=== PATIENT | female | born 1980 | race Hispanic/Latino ===

== ENCOUNTER 2017-11-21 20:00 | Inpatient (IN) | payer OTHER ==
--- NOTE | 2017-11-21 19:38 | PDOC.LDHP ---
Labor and Delivery H&P Chief complaint: scheduled induction HPI: 37 yo @ 38w2d by 10w5d CRL who presents for scheduled IOL due to pre- gestational DM, controlled on Metformin 500 mg BID and Glyburide 2.5 mg BID. Fetus also noted to have possible VSD, hypermobility of Eustachian valve and possible left ventricular hypertrophy on echo. Pt has been counseled and recommended that have echo after . NICU notified. Remainder of antepartum course has been benign. Current gestational age (weeks): 38 Due date: 12/03/17 Dating criteria: first trimester ultrasound Grav: 2 Para: 1 OB History Details: 1 term without complications, 6lb5oz Current complications: pregestational diabetes Abnormal US findings: Yes (See HPI above. ) Past Medical History: Type 2 DM Current medications: pre-argelia vitamins, other (Metformin, Glyburide) Previous surgical history: none Allergies/Adverse Reactions: Allergies Allergy/AdvReac Type Severity Reaction Status Date / Time No Known Allergies Allergy Verified 11/21/17 21:12 Social history: none - Physical Exam Vital signs reviewed and normal: yes General: NAD Heart: RRR Lungs: nonlabored breathing Abdomen: gravid Extremeties: trace edema FHT: category 2 (120s, mod leland, +accels, + early and occasional variable decles - overall reassuring cat 2, some periods overnight with minimal variability which resolved with PO intake.) [place] contractions every: q2-3 min - Vaginal Exam cm dilated: 7 (AROM thick meconium - exam by me this AM ) Effacement: 0% Station: -2 - OB Labs Blood type: O RH: positive Antibody Screen: negative HIV: negative RPR: negative HEPSAg: negative GBS: positive Urine drug screen: not done Rubella: immune Additional Labs: NIPT and msAFP negative - Assessment 38w2d IUP Pre-gestational DM VSD and possible LVH Concern for possible LGA GHTN GBS carrier - Plan Plan: admit to L&D, cervical ripening, GBS antibiotic prophylaxis, informed consent obtained, anesthesia consult for pain management -: s/p cytotec cervical ripening x 1 dose, now in active labor Notified NICU of possible findings on echo. Will need echo after Accu checks during labor and PRN insulin. HTN not persistently severe. PreE labs wnl. Presumed GHTN and pain related. NICU at delivery due to echo and meconium
[2017-11-21] MEDS ORDERED: Diphenoxylate HCl/Atropine Tablet PO PRN (20:56)
[2017-11-21] MEDS ORDERED: Promethazine HCl 25 MG/ML VIAL IM PRN (20:56)
[2017-11-21] MEDS ORDERED: HYDROcodone/Acetaminophen 5/325 mg Tablet PO PRN (20:56)
[2017-11-21] MEDS ORDERED: LR / Pitocin 40 units/1000 ml 1,000 ML IV PRN (20:56)
[2017-11-21] MEDS ORDERED: Lidocaine 1% (PF) 30 ML VIAL SC PRN (20:56)
[2017-11-21] MEDS ORDERED: Ondansetron HCl/PF 4 MG/2 ML Vial IVP PRN (20:56)
[2017-11-21] MEDS ORDERED: Carboprost 250 MCG/ML AMP IM PRN (20:56)
[2017-11-21] MEDS ORDERED: Penicillin G Potassium 5 MILL.UNITS in Sodium Chloride 0.9% 100 ML IVPB SCH (20:56)
[2017-11-21] MEDS ORDERED: Ibuprofen 800 MG TAB PO PRN (20:56)
[2017-11-21] MEDS ORDERED: Methylergonovine 0.2 MG/ML VIAL IM PRN (20:56)
[2017-11-21] MEDS ORDERED: Misoprostol 200 MCG TAB PR PRN (20:56)
[2017-11-21] MEDS ORDERED: Acetaminophen 500 MG TAB PO PRN (20:56)
[2017-11-21 21:15] VITALS: BMI 31.9
[2017-11-21] MEDS: Lactated Ringer's 1,000 ML IV SCH (21:55)
[2017-11-21 22:08] LABS: Hemoglobin 13.3 g/dL (12.0-16.0); Mean Corpuscular HGB CONC 33.9 g/dL (32.0-36.0); Mean Corpuscular Hemoglobin 28.6 pg (27.0-31.0); Mean Corpuscular Volume 84.3 fl (81.0-99.0); Mean Platelet Volume 9.7 fL (7.4-10.4); Platelet Count 179 thou/uL (130-400); RBC Distribution Width 16.8 % (11.5-14.5); Red Blood Cell (RBC) Count 4.65 mill/uL (4.20-5.40); White Blood Cell (WBC) Count 7.3 thou/uL (4.8-10.8)
[2017-11-21] MEDS: Misoprostol 100 MCG TAB VAG SCH (22:13)
[2017-11-21] MEDS: metFORMIN 500 MG TAB PO SCH ×2 (22:20→22:21)
[2017-11-21 22:49] LABS: Syphilis Antibody Nonreactive (Nonreactive); Syphilis Antibody Index 0.04 S/CO (<1.00 Non-Reactive)
[2017-11-21 23:21] LABS: HBSAg Index 0.25 S/CO (0-0.99); HIV (1/2) Antibody/Antigen Non-Reactive (NonReactive); Hep B Surf Ag Non-Reactive S/CO (NonReactive)
[2017-11-21] MEDS: Penicillin G 2.5 MILL.units 2.5 MILL.UNITS in Premix Bag 1 BAG IVPB SCH (23:31)
[2017-11-22 01:10] LABS: Creatinine, Urine 120.97 mg/dL (47-110)
[2017-11-22 01:30] LABS: ALT (SGPT) 27 U/L (8-55); AST (SGOT) 33 U/L (5-34); Albumin 3.3 g/dL (3.5-5.0); Alkaline Phosphatase 262 U/L (40-150); Anion Gap 14 mmol/L (10-20); BUN (Urea Nitrogen) 10 mg/dL (7.0-18.7); Bilirubin, Total 0.4 mg/dL (0.2-1.2); Calc. Creatinine Clearance 179 mL/min (70-130); Calcium 8.8 mg/dL (7.8-10.44); Carbon Dioxide 22 mmol/L (22-29); Chloride 104 mmol/L (98-107); Estimated GFR-MDRD Greater than 90; Globulin 2.8 g/dL (2.4-3.5); Glucose 130 mg/dL (70-105); Potassium 3.3 mmol/L (3.5-5.1); Protein, Total 6.1 g/dL (6.0-8.3); Sodium 137 mmol/L (136-145)
[2017-11-22] MEDS: Penicillin G 2.5 MILL.units 2.5 MILL.UNITS in Premix Bag 1 BAG IVPB SCH ×4 (02:16→15:17)
[2017-11-22] MEDS: Lactated Ringer's 1,000 ML IV SCH (02:18)
[2017-11-22] MEDS: LR 500 ML/Oxytocin 10 units 500 ML IV SCH (06:10)
[2017-11-22] MEDS: Misoprostol 100 MCG TAB VAG SCH ×4 (06:10→22:50)
[2017-11-22 10:30] LABS: Actual Bicarbonate (HCO3a) 25.7 mEq/L (22-26)
--- NOTE | 2017-11-22 10:45 | PDOC.OPDEL ---
OB Operative/Delivery Note Delivery Dr/Surgeon: Janay Lyle DO Pre-Delivery Diagnosis: medically indicated induction Procedure/Post Delivery Dx: spontaneous vaginal delivery Weeks gestation: 38 Anesthesia: local - Findings A Sex: female - 1 min: 8 - 5 min: 9 - Additional Findings/Plan Placenta delivered: spontaneous Repaired Obstetrical Laceration: 2nd degree Estimated blood loss: 500 cc from laceration Compilations/Other Findings: Infant delivered in RHYS position, thick meconium noted. Handed to NICU team after delivery. Post delivery plan: recovery in LICU
[2017-11-22] MEDS: Insulin Regular 300 UNITS/3 ML VIAL SC PRN ×2 (10:53→15:49)
[2017-11-22] MEDS ORDERED: Benzocaine/Menthol 20-0.5% 60 ML CAN TOP PRN (13:49)
[2017-11-22] MEDS ORDERED: LR / Pitocin 40 units/1000 ml 1,000 ML IV SCH (13:49)
[2017-11-22] MEDS ORDERED: Bisacodyl 10 MG SUPP PR PRN (13:49)
[2017-11-22] MEDS ORDERED: Preparation H Ointment 28 GM TUBE PR PRN (13:49)
[2017-11-22] MEDS ORDERED: traMADol HCl 50 MG TAB PO PRN (13:49)
[2017-11-22] MEDS ORDERED: diphenhydrAMINE 25 MG CAP PO PRN (13:49)
[2017-11-22] MEDS ORDERED: Milk Of Magnesia 30 ML UDCUP PO PRN (13:49)
[2017-11-22] MEDS: Ibuprofen 800 MG TAB PO SCH ×2 (15:16→21:29)
[2017-11-22] MEDS: glyBURIDE 2.5 MG TAB PO SCH (17:28)
[2017-11-22] MEDS: metFORMIN 500 MG TAB PO SCH (17:28)
[2017-11-22] MEDS: Docusate Calcium (SURFAK) 240 MG CAP PO SCH (21:29)
[2017-11-23] MEDS: Misoprostol 100 MCG TAB VAG SCH (01:14)
[2017-11-23] MEDS: Ibuprofen 800 MG TAB PO SCH ×3 (05:14→21:45)
[2017-11-23] MEDS: LR 500 ML/Oxytocin 10 units 500 ML IV SCH (06:13)
[2017-11-23] MEDS ORDERED: Lanolin Ointment 7 GM TUBE TOP PRN (06:15)
[2017-11-23 06:21] LABS: #Basophils 0.1 thou/uL (0.0-0.2); #Eosinphils 0.1 thou/uL (0.0-0.7); #Lymphocytes 3.2 thou/uL (1.20-3.40); #Monocytes 0.5 thou/uL (0.11-0.59); #Neutrophils 6.5 thou/uL (1.40-6.50); %Basophils 0.7 % (0.0-1.0); %Eosinophils 0.6 % (0.0-10.0); %Lymphocytes 30.9 % (21.0-51.0); %Monocytes 4.9 % (0.0-10.0); %Neutrophils 62.8 % (42.0-75.0); Hemoglobin 8.6 g/dL (12.0-16.0); Mean Corpuscular HGB CONC 33.7 g/dL (32.0-36.0); Mean Corpuscular Hemoglobin 28.9 pg (27.0-31.0); Mean Corpuscular Volume 85.6 fl (81.0-99.0); Platelet Count 159 thou/uL (130-400); RBC Distribution Width 16.6 % (11.5-14.5); Red Blood Cell (RBC) Count 2.99 mill/uL (4.20-5.40); White Blood Cell (WBC) Count 10.4 thou/uL (4.8-10.8)
[2017-11-23] MEDS: glyBURIDE 2.5 MG TAB PO SCH ×2 (09:31→17:32)
[2017-11-23] MEDS: Docusate Calcium (SURFAK) 240 MG CAP PO SCH ×2 (09:31→21:45)
[2017-11-23] MEDS: metFORMIN 500 MG TAB PO SCH ×2 (09:31→17:31)
--- NOTE | 2017-11-23 12:31 | PDOC.PP ---
Post Progress Note Post Day #: 1 Subjective: Doing well. Breast feeding. No complaints. Minimal lochia and pain controlled. PO intake tolerated: yes Flatus: yes Ambulation: yes Vital Signs (12 hours) Temp Pulse Resp BP 11/23/17 08:30 98.9 F 76 20 131/73 11/23/17 07:55 98.9 F 76 20 11/23/17 05:15 98.3 F 79 18 134/64 11/23/17 00:50 98.7 F 70 20 129/60 Weight Weight 169 lb - Physical Examination General: NAD Cardiovascular: RRR Respiratory: non-labored breathing Abdominal: no distention, appropriately TTP Fundus firm & at: below umbilicus Extremities: negative homans (B) Neurological: no gross focal deficits Psychiatric: A&Ox3 Result Diagrams: 11/23/17 05:54 11/21/17 22:02 Additional Labs: Post Labs Blood Type O POSITIVE 11/21/17 22:02 Hep Bs Antigen Non-Reactive S/CO (NonReactive) 11/21/17 22:02 (1) Vaginal delivery Code(s): O80 - ENCOUNTER FOR FULL-TERM UNCOMPLICATED DELIVERY Status: Acute (2) Diabetes Code(s): E11.9 - TYPE 2 DIABETES MELLITUS WITHOUT COMPLICATIONS Status: Acute Qualifiers: Diabetes mellitus type: type 2 Diabetes mellitus complication status: without complication (3) Anemia Code(s): D64.9 - ANEMIA, UNSPECIFIED Status: Acute Qualifiers: Other causes of anemia: acute posthemorrhagic - Assessment/Plan Doing well post Increase metformin to 100 mg BID and keep glyburide 2.5 mg BID. Monitor BG. HTN has resolved. Iron for anemia Plan for d/c tomorrow. Infant has had echo, report pending.
[2017-11-23] MEDS: Insulin Regular 300 UNITS/3 ML VIAL SC PRN (12:40)
[2017-11-24] MEDS: Ibuprofen 800 MG TAB PO SCH ×2 (05:39→14:31)
[2017-11-24] MEDS: LR 500 ML/Oxytocin 10 units 500 ML IV SCH (05:54)
[2017-11-24] MEDS ORDERED: Iron Polysaccharides Complex 150 MG CAP PO SCH (08:00)
[2017-11-24] MEDS: Docusate Calcium (SURFAK) 240 MG CAP PO SCH (08:59)
[2017-11-24] MEDS: glyBURIDE 2.5 MG TAB PO SCH (09:01)
[2017-11-24] MEDS: metFORMIN 500 MG TAB PO SCH (09:01)
[2017-11-24 12:41] VITALS: BP 132/68; TEMP 99
--- NOTE | 2017-11-24 13:33 | PDOC.PP ---
Post Progress Note Post Day #: 2 Subjective: Doing well. No complaints. Minimal lochia. Pain controlled. BG low with new regimen. PO intake tolerated: yes Flatus: yes Ambulation: yes Vital Signs (12 hours) Temp Pulse Resp BP 11/24/17 08:00 99 F 76 18 132/68 11/24/17 05:51 70 16 128/64 Weight Weight 169 lb - Physical Examination General: NAD Cardiovascular: RRR Respiratory: non-labored breathing Abdominal: no distention, appropriately TTP Fundus firm & at: below umbilicus Extremities: negative homans (B) Neurological: no gross focal deficits Psychiatric: A&Ox3 Result Diagrams: 11/23/17 05:54 11/21/17 22:02 Additional Labs: Post Labs Blood Type O POSITIVE 11/21/17 22:02 Hep Bs Antigen Non-Reactive S/CO (NonReactive) 11/21/17 22:02 (1) Vaginal delivery Code(s): O80 - ENCOUNTER FOR FULL-TERM UNCOMPLICATED DELIVERY Status: Acute (2) Diabetes Code(s): E11.9 - TYPE 2 DIABETES MELLITUS WITHOUT COMPLICATIONS Status: Acute Qualifiers: Diabetes mellitus type: type 2 Diabetes mellitus complication status: without complication (3) Anemia Code(s): D64.9 - ANEMIA, UNSPECIFIED Status: Acute Qualifiers: Other causes of anemia: acute posthemorrhagic - Assessment/Plan Change regimen to metformin 1000 mg BID only at home. Continue to check BG at home. D/C today with infant,
== END 2017-11-24 16:45 | disposition home or self-care (01) | DRG 775 ==
LOC: L&D 20:45 → 3SW 11-22 13:49
PROVIDERS: ADMIT Obstetrics & Gynecology; ATTEND Obstetrics & Gynecology
PROC: 3E0P7VZ Introduction of Hormone into Female Reproductive, Via Natural or Artificial Opening (ICD-10-PCS; 2017-11-21)
PROC: 10E0XZZ Delivery of Products of Conception, External Approach (ICD-10-PCS; principal; 2017-11-22)
DX: O24.425 Gestational diabetes mellitus in childbirth, controlled by oral hypoglycemic drugs (principal); D62 Acute posthemorrhagic anemia; O13.4 Gestational [pregnancy-induced] hypertension without significant proteinuria, complicating childbirth; Z37.0 Single live birth; O77.0 Labor and delivery complicated by meconium in amniotic fluid; O99.824 Streptococcus B carrier state complicating childbirth; Z3A.38 38 weeks gestation of pregnancy; O70.1 Second degree perineal laceration during delivery; O99.02 Anemia complicating childbirth
CPT/HCPCS: 36415; 36416; 80053; 82570; 82805; 84156; 84540; 85025; 85027; 86780; 86850; 86900; 86901; 87340; 87389; J0595; J1815; J2001; J2405; J2540; J7050

== ENCOUNTER 2018-12-04 17:40 | Day surgery (SDC) | payer OTHER ==
[2018-12-04 18:35] VITALS: BMI 30.8
--- NOTE | 2018-12-04 18:40 | PDOC.LDHP ---
Labor and Delivery H&P Chief complaint: contractions HPI: 38 y/o at 33w5d, patient of Dr. Lyle, presents with ctx, pressure, and leg pain. Denies VB, LOF or decreased FM. ROS neg for HEENT, CV, pulm, gi, gu, neuro, psych, skin, musculoskeletal or constitutional symptoms other than mentioned above. OB History Details: 2 prior term SVDs Current complications: pregestational diabetes Past Medical History: Type 2 DM Current medications: pre- vitamins, other (metformin) Previous surgical history: none Allergies/Adverse Reactions: Allergies Allergy/AdvReac Type Severity Reaction Status Date / Time No Known Allergies Allergy Verified 12/04/18 18:24 Social history: none - Physical Exam Vital signs reviewed and normal: yes General: NAD, resting Lungs: nonlabored breathing Abdomen: gravid Extremeties: no edema FHT: category 1 (140s, mod variability, + accels, no decels) [place] contractions every: 2-3 mins - Vaginal Exam cm dilated: 1 (unchanged after 3 hours) Effacement: 50% Station: -3 - Assessment 38 y/o at 33w5d with no e/o PTL. No longer feeling ctx. FFN negative. status reassuring with reactive NST. - Plan -: D/c home with precautions. Advised to keep all appointments. Has MFM appt . Given work excuse through Monday.
[2018-12-04] MEDS ORDERED: Lactated Ringer's 1,000 ML IV SCH (19:30)
[2018-12-04 19:33] LABS: FFN Internal QC Analyzer PASS (PASS); FFN Internal QC Cassette PASS (PASS); Fetal Fibronectin Negative (Negative)
== END 2018-12-04 22:05 | disposition home or self-care (01) ==
LOC: L&D/OP 17:40
PROVIDERS: ATTEND Obstetrics & Gynecology
DX: O47.03 False labor before 37 completed weeks of gestation, third trimester (principal); O99.89 Other specified diseases and conditions complicating pregnancy, childbirth and the puerperium; M79.606 Pain in leg, unspecified; O24.313 Unspecified pre-existing diabetes mellitus in pregnancy, third trimester; E11.9 Type 2 diabetes mellitus without complications; Z3A.33 33 weeks gestation of pregnancy; Z79.84 Long term (current) use of oral hypoglycemic drugs; Z79.899 Other long term (current) drug therapy
CPT/HCPCS: 82731; 96360; 96361; 99284

== ENCOUNTER 2019-01-03 05:30 | Inpatient (IN) | payer OTHER ==
--- NOTE | 2019-01-02 20:03 | PDOC.LDHP ---
Labor and Delivery H&P Chief complaint: scheduled induction HPI: 38 yo @ 38w0d by 33 week sono with BDM on Metformin 1000 mg QAM who presents for IOL. Antepartum course complicated by poor care, anemia, BDM (last HbA1C 7) and AMA. Pt has seen MFM who had limited but normal appearing sono. Current gestational age (weeks): 38 Due date: 01/17/19 Dating criteria: other (3rd trimester sono) Grav: 3 Para: 2 OB History Details: 2 TSVDs- H/O marcrosomia (10 lb 8 oz)- no complication with delivery Current complications: pregestational diabetes Abnormal US findings: No Past Medical History: BDM, Anemia Current medications: pre-argelia vitamins, iron, other (Metformin 1000 mg QAM) Allergies/Adverse Reactions: Allergies Allergy/AdvReac Type Severity Reaction Status Date / Time No Known Allergies Allergy Verified 12/04/18 18:24 Social history: none - Physical Exam Vital signs reviewed and normal: yes General: NAD Heart: RRR Lungs: nonlabored breathing Abdomen: gravid Extremeties: trace edema FHT: category 1 - Vaginal Exam cm dilated: 3 (cephalic, AROM copious clear ) Effacement: 50% Station: -2 - OB Labs Blood type: O RH: positive Antibody Screen: negative HIV: negative RPR: negative HEPSAg: negative GBS: negative Urine drug screen: negative Rubella: immune Additional Labs: Hbg 10.8 HbA1C 7 - Assessment 38w0d IUP BDM Poor PNC Anemia H/O macrosomia - Plan Plan: admit to L&D, informed consent obtained, anesthesia consult for pain management -: On pitocin for IOL, s/p AROM Accuchecks q2 hr in latent and q hr in active labor
[2019-01-03] MEDS ORDERED: Lidocaine 1% (PF) 30 ML VIAL ONE (08:48)
[2019-01-03] MEDS ORDERED: Ondansetron PF 4 MG/2 ML Vial IVP PRN (08:50)
[2019-01-03] MEDS ORDERED: Diphenoxylate HCl/Atropine Tablet PO PRN (08:50)
[2019-01-03] MEDS ORDERED: Acetaminophen 500 MG TAB PO PRN (08:50)
[2019-01-03] MEDS ORDERED: Methylergonovine 0.2 MG/ML VIAL IM PRN (08:50)
[2019-01-03] MEDS ORDERED: Carboprost 250 MCG/ML AMP IM PRN (08:50)
[2019-01-03] MEDS ORDERED: Promethazine HCl 25 MG/ML VIAL IM PRN (08:50)
[2019-01-03] MEDS ORDERED: NS w/ Oxytocin 10 units 500 ML IV SCH (08:50)
[2019-01-03] MEDS ORDERED: HYDROcodone/Acetaminophen 5/325 mg Tablet PO PRN ×2 (08:50→20:28)
[2019-01-03] MEDS ORDERED: Butorphanol Tartrate 1 MG/ML VIAL SLOW IVP PRN (08:50)
[2019-01-03] MEDS ORDERED: Lidocaine 1% (PF) 30 ML VIAL SC PRN (08:50)
[2019-01-03] MEDS ORDERED: NS / Oxytocin 40 units/1000ml 1,000 ML IV PRN (08:50)
[2019-01-03] MEDS ORDERED: Ibuprofen 800 MG TAB PO PRN (08:50)
[2019-01-03] MEDS ORDERED: NS w/ Oxytocin 10 units 500 ML ONE (09:20)
[2019-01-03 09:24] LABS: Hemoglobin 11.8 g/dL (12.0-16.0); Mean Corpuscular HGB CONC 32.5 g/dL (32.0-36.0); Mean Corpuscular Hemoglobin 24.9 pg (27.0-31.0); Mean Corpuscular Volume 76.7 fL (78.0-98.0); Mean Platelet Volume 9.9 fL (7.4-10.4); Platelet Count 216 thou/uL (130-400); RBC Distribution Width 15.8 % (11.5-14.5); Red Blood Cell (RBC) Count 4.72 mill/uL (4.20-5.40); White Blood Cell (WBC) Count 8.3 thou/uL (4.8-10.8)
[2019-01-03] MEDS: Lactated Ringer's 1,000 ML IV SCH ×2 (10:00→13:59)
[2019-01-03 10:02] LABS: Syphilis Antibody Nonreactive (Nonreactive); Syphilis Antibody Index 0.04 S/CO (<1.00 Non-Reactive)
[2019-01-03 10:03] LABS: HBSAg Index 0.26 S/CO (0-0.99); HIV (1/2) Antibody/Antigen Non-Reactive (NonReactive); HIV 1/2 INDEX 0.18 S/CO (<1.00); Hep B Surf Ag Non-Reactive S/CO (NonReactive)
[2019-01-03 10:29] VITALS: BMI 33.4
--- NOTE | 2019-01-03 18:47 | PDOC.OPDEL ---
OB Operative/Delivery Note Delivery Dr/Surgeon: Janay Lyle DO Pre-Delivery Diagnosis: medically indicated induction Procedure/Post Delivery Dx: spontaneous vaginal delivery Weeks gestation: 38 Anesthesia: none - Findings A Sex: male - 1 min: 8 - 5 min: 9 - Additional Findings/Plan Placenta delivered: spontaneous Repaired Obstetrical Laceration: 2nd degree Estimated blood loss: QBL 366 cc Compilations/Other Findings: in OA position Normal placenta Post delivery plan: routine recovery
[2019-01-03] MEDS ORDERED: NS / Oxytocin 40 units/1000ml 1,000 ML IV SCH (20:28)
[2019-01-03] MEDS ORDERED: Bisacodyl 10 MG SUPP PR PRN (20:28)
[2019-01-03] MEDS ORDERED: Misoprostol 200 MCG TAB VAG PRN (20:28)
[2019-01-03] MEDS ORDERED: Milk Of Magnesia 30 ML UDCUP PO PRN (20:28)
[2019-01-03] MEDS ORDERED: Benzocaine/Menthol 20-0.5% 60 ML CAN TOP PRN (20:28)
[2019-01-03] MEDS: Docusate Calcium (SURFAK) 240 MG CAP PO SCH (21:50)
[2019-01-03] MEDS: Ibuprofen 800 MG TAB PO SCH (21:50)
[2019-01-04] MEDS: Ibuprofen 800 MG TAB PO SCH ×3 (05:45→21:30)
[2019-01-04] MEDS: Lactated Ringer's 1,000 ML IV SCH ×3 (05:50→17:59)
[2019-01-04 06:33] LABS: Hemoglobin 9.7 g/dL (12.0-16.0); Mean Corpuscular HGB CONC 32.5 g/dL (32.0-36.0); Mean Corpuscular Hemoglobin 24.7 pg (27.0-31.0); Mean Corpuscular Volume 76.1 fL (78.0-98.0); Mean Platelet Volume 10.4 fL (7.4-10.4); Platelet Count 181 thou/uL (130-400); RBC Distribution Width 15.4 % (11.5-14.5); Red Blood Cell (RBC) Count 3.94 mill/uL (4.20-5.40); White Blood Cell (WBC) Count 14.2 thou/uL (4.8-10.8)
--- NOTE | 2019-01-04 09:02 | PDOC.PP ---
Post Progress Note Post Day #: 1 Subjective: No concerns. Pain controlled. Minimal lochia. Breast feeding. PO intake tolerated: yes Flatus: yes Ambulation: yes Vital Signs (12 hours) Temp Pulse Resp BP Pulse Ox 01/04/19 07:06 98.1 F 62 16 138/68 99 01/04/19 02:25 98.2 F 60 18 129/60 01/03/19 22:35 98.3 F 57 L 18 144/67 H 01/03/19 21:15 98.3 F 63 18 152/71 H 98 Weight Weight 177 lb - Physical Examination General: NAD Cardiovascular: RRR Respiratory: non-labored breathing Abdominal: no distention, appropriately TTP Fundus firm & at: below umbilicis Deviation from normal: umbilical hernia nttp Extremities: negative homans (B) Neurological: no gross focal deficits Psychiatric: A&Ox3, normal affect Result Diagrams: 01/04/19 05:44 Additional Labs: Post Labs Blood Type O POSITIVE 01/03/19 09:06 Hep Bs Antigen Non-Reactive S/CO (NonReactive) 01/03/19 09:06 (1) Anemia Code(s): D64.9 - ANEMIA, UNSPECIFIED Status: Acute Qualifiers: Anemia type: iron deficiency (2) Diabetes Code(s): E11.9 - TYPE 2 DIABETES MELLITUS WITHOUT COMPLICATIONS Status: Acute Qualifiers: Diabetes mellitus type: type 2 Diabetes mellitus penitentiary insulin use: without exterminator use Diabetes mellitus complication status: without complication Qualified Code(s): E11.9 - Type 2 diabetes mellitus without complications (3) Vaginal delivery Code(s): O80 - ENCOUNTER FOR FULL-TERM UNCOMPLICATED DELIVERY Status: Acute - Assessment/Plan PPD1 VSSAF Continue PP care. Infant monitored due to maternal BDM. Plan for d/c tomorrow.
[2019-01-04] MEDS: metFORMIN XR 500 MG TAB PO SCH (09:08)
[2019-01-04] MEDS: Ferrous Sulfate 325 MG TAB PO SCH ×2 (09:08→16:40)
[2019-01-04] MEDS: Docusate Calcium (SURFAK) 240 MG CAP PO SCH ×2 (09:08→21:30)
[2019-01-04] MEDS: Prenatal Vitamin 1 TAB PO SCH (09:08)
[2019-01-05] MEDS: Lactated Ringer's 1,000 ML IV SCH ×2 (01:26→07:15)
[2019-01-05] MEDS: Ibuprofen 800 MG TAB PO SCH ×2 (06:16→14:00)
[2019-01-05 08:48] VITALS: BP 138/74; TEMP 98.3
[2019-01-05] MEDS: Ferrous Sulfate 325 MG TAB PO SCH (08:59)
[2019-01-05] MEDS: Prenatal Vitamin 1 TAB PO SCH (09:00)
[2019-01-05] MEDS: metFORMIN XR 500 MG TAB PO SCH (09:00)
[2019-01-05] MEDS: Docusate Calcium (SURFAK) 240 MG CAP PO SCH (09:00)
--- NOTE | 2019-01-05 10:47 | PDOC.PP ---
Post Progress Note Post Day #: 2 Subjective: Doing well. No concerns. Breast feeding. Minimal bleeding/pain. PO intake tolerated: yes Flatus: yes Ambulation: yes Vital Signs (12 hours) Temp Pulse Resp BP Pulse Ox 01/05/19 08:10 98.3 F 67 16 138/74 97 Weight Weight 177 lb - Physical Examination General: NAD Cardiovascular: RRR Respiratory: non-labored breathing Abdominal: no distention, appropriately TTP Fundus firm & at: below umbilicus Extremities: negative homans (B) Neurological: no gross focal deficits Psychiatric: A&Ox3, normal affect Result Diagrams: 01/04/19 05:44 Additional Labs: Post Labs Blood Type O POSITIVE 01/03/19 09:06 Hep Bs Antigen Non-Reactive S/CO (NonReactive) 01/03/19 09:06 (1) Anemia Code(s): D64.9 - ANEMIA, UNSPECIFIED Status: Acute Qualifiers: Anemia type: iron deficiency (2) Diabetes Code(s): E11.9 - TYPE 2 DIABETES MELLITUS WITHOUT COMPLICATIONS Status: Acute Qualifiers: Diabetes mellitus type: type 2 Diabetes mellitus skilled nursing insulin use: without oil spreader operator use Diabetes mellitus complication status: without complication Qualified Code(s): E11.9 - Type 2 diabetes mellitus without complications (3) Vaginal delivery Code(s): O80 - ENCOUNTER FOR FULL-TERM UNCOMPLICATED DELIVERY Status: Acute - Assessment/Plan PPD2 VSSAF Stable for d/c home. F/U 6 weeks PP
== END 2019-01-05 17:05 | disposition home or self-care (01) | DRG 807 ==
LOC: L&D 08:27 → EEVIPCON 08:27 → 3SE 21:26
PROVIDERS: ADMIT Obstetrics & Gynecology; ATTEND Obstetrics & Gynecology
PROC: 10E0XZZ Delivery of Products of Conception, External Approach (ICD-10-PCS; principal; 2019-01-03)
PROC: 0KQM0ZZ Repair Perineum Muscle, Open Approach (ICD-10-PCS; 2019-01-03)
PROC: 10907ZC Drainage of Amniotic Fluid, Therapeutic from Products of Conception, Via Natural or Artificial Opening (ICD-10-PCS; 2019-01-03)
PROC: 3E033VJ Introduction of Other Hormone into Peripheral Vein, Percutaneous Approach (ICD-10-PCS; 2019-01-03)
DX: O24.12 Pre-existing type 2 diabetes mellitus, in childbirth (principal); Z37.0 Single live birth; E11.9 Type 2 diabetes mellitus without complications; O70.1 Second degree perineal laceration during delivery; O99.02 Anemia complicating childbirth; D50.9 Iron deficiency anemia, unspecified; Z79.84 Long term (current) use of oral hypoglycemic drugs; Z3A.38 38 weeks gestation of pregnancy
CPT/HCPCS: 36415; 36416; 85027; 86780; 86850; 86900; 86901; 87340; 87389; J0595; J2001